=== PATIENT | male | born 1960 | race American Indian/Alaskan Native ===

== ENCOUNTER 2017-05-22 08:00 | Outpatient (CLI) | payer OTHER ==
--- NOTE | 2017-05-22 10:47 | XRay Report ---
XRAY LEFT HIP THREE VIEWS: 05/22/17 08:00:00 CLINICAL: Left hip pain. FINDINGS: No fracture or dislocation. Mild superior joint space narrowing with superior acetabular eburnation. Normal femoral head contour. Minimal osteophytes. Similar changes in the right hip. Pelvic bones are in tact. Normal soft tissues. IMPRESSION: Mild osteoarthritis.
== END 2017-05-22 08:01 | disposition home or self-care (01) ==
LOC: SPVIMAG 08:00
PROVIDERS: ATTEND Orthopaedic Surgery Sports Medicine
DX: M16.12 Unilateral primary osteoarthritis, left hip (principal)